=== PATIENT | male | born 1985 | race Caucasian/White ===

== ENCOUNTER 2020-11-19 19:27 | Emergency (ER) | payer OTHER, SELFPAY ==
--- NOTE | ~2020-11-19 | XR_ITS ---
EXAMINATION: LUMBOSACRAL SPINE AND COCCYX CLINICAL INFORMATION: Fracture COMPARISON: None TECHNIQUE: 2 views lumbosacral spine, 4 views sacrum and coccyx FINDINGS: There is straightening of the lumbosacral spine. There is disc space narrowing at L5-S1. There is partial lumbarization of what I am calling S1. No fractures are seen Sacrum and coccyx appear normal without evidence of fracture. The visualized pelvis appears unremarkable. XR/XR sacrum coccyx min 2V IMPRESSION: No evidence of fracture involving the lumbosacral spine, sacrum or coccyx.
--- NOTE | ~2020-11-19 | XR_ITS ---
EXAMINATION: LUMBOSACRAL SPINE AND COCCYX CLINICAL INFORMATION: Fracture COMPARISON: None TECHNIQUE: 2 views lumbosacral spine, 4 views sacrum and coccyx FINDINGS: There is straightening of the lumbosacral spine. There is disc space narrowing at L5-S1. There is partial lumbarization of what I am calling S1. No fractures are seen Sacrum and coccyx appear normal without evidence of fracture. The visualized pelvis appears unremarkable. XR/XR lumbar spine 2-3V IMPRESSION: No evidence of fracture involving the lumbosacral spine, sacrum or coccyx.
[2020-11-19 21:26] VITALS: BP 115/73; PULSE 84; RESP 20; TEMP 36.8; O2SAT 99; BMI 27.3
--- NOTE | 2020-11-19 22:16 | ED_ITS ---
HPI - Back Pain/Injury General Chief Complaint: Back Pain/Injury Stated Complaint: back inj Time Seen by Provider: 11/19/20 22:06 Source: patient Mode of arrival: ambulatory Limitations: no limitations History of Present Illness HPI Narrative: Patient presents to ED for back pain that began since early this afternoon. Patient states back pain soon after lifting, of manhole overhead which is about 120 lb. Patient states soon after he felt back pain. Patient states history of sciatica in the movement exacerbated his sciatica back pain. Patient denies hearing any cracking sound in back pain. Patient denies any urinary/bowel incontinence. Patient denies falling to the ground or hitting head. MD elicited complaint: back pain Related Data Previous Rx's Medication Instructions Recorded cyclobenzaprine 10 mg tablet 10 mg PO TID PRN #21 tab 11/20/20 lidocaine 4 % topical patch 1 patch TOPICAL DAILY PRN #10 ea 11/20/20 naproxen 500 mg tablet 500 mg PO BID PRN #20 tab 11/20/20 prednisone 20 mg tablet 60 mg PO DAILY 5 Days #15 tab 11/20/20 Allergies Allergy/AdvReac Type Severity Reaction Status Date / Time No Known Allergies Allergy Unverified 11/16/19 15:31 Review of Systems Review of Systems: Yes all other systems are reviewed and are negative Constitutional: Constitutional: Reports as per HPI and Reports no additional constitutional complaints Eyes: Eyes: Reports as per HPI and Reports no additional eye complaints ENT: Reports system reviewed and no additional complaints, except as documented and Reports as per HPI Cardiovascular: Cardiovascular: Reports as per HPI and Reports no additional cardiovascular complaints Respiratory: Respiratory: Reports as per HPI and Reports no additional respiratory complaints Gastrointestinal: Gastrointestinal: Reports as per HPI and Reports no additional gastrointestinal complaints Genitourinary: Genitourinary: Reports no additional male genitourinary complaints and Reports as per HPI Musculoskeletal: Musculoskeletal: Reports no additional musculoskeletal complaints, Reports as per HPI and Reports back pain Neurologic: Reports system reviewed and no additional complaints, except as documented and Reports as per HPI Psychiatric: Psychiatric: Reports no additional psychiatric complaints and Reports as per HPI Endocrine: Endocrine: Reports no additional endocrine complaints and Reports as per HPI [facility] Past Medical History Medical History (Updated 11/20/20 @ 00:42 by NERIS Francois) No known health problems Social History Social History Advance Directives: No Advance Directives Information Provided: No Physical Exam Vital Signs: Vital Signs: Last Vital Signs Temp 98.3 F 11/19/20 21:26 Pulse 84 11/19/20 21:26 Resp 20 11/19/20 21:26 BP 115/73 11/19/20 21:26 Pulse Ox 99 11/19/20 21:26 Body Mass Index 27.3 Const: General: cooperative, healthy appearing, comfortable, no acute distress, well developed, alert, awake and Physically active Orientation /consciousness: patient oriented x3 HENMT: Head: Yes normal to inspection and Yes No palpable skull fracture present Eyes: General: appearance normal, both eyes and all related structures Neck: Neck: Yes normal visual inspection, Yes full ROM, Yes no lymphadenopathy, Yes no meningeal signs, Yes trachea midline, Yes supple and No tender Chest: Chest palpation & inspection: normal inspection of the chest and normal palpation of entire chest wall Resp: Effort & Inspection: normal respiratory effort and able to speak in complete sentences Auscultation: clear to auscultation bilaterally Cardio: Jugular venous distension: no JVD Heart sounds: S1 normal heart sound present and S2 normal heart sound present GI: Inspection: Yes normal to inspection and No abdominal wall ecchymosis Palpation (GI): Soft to palpation, not firm, nontender, no guarding and not rigid : General: No CVA tenderness and Yes no CVA tenderness Back/Spine/Pelvis: Back: no CVA tenderness, No CVA tenderness and back tenderness (lumbar/sacrum) Skin: General skin exam: no rashes or lesions noted and elasticity normal Neuro: General: patient oriented x3, gait normal, no meningeal signs and CN's II-XI intact bilaterally Cranial nerves: Yes CN's II-XII intact bilaterally Extrem: General: Yes normal to inspection and Yes full ROM Psych: Appearance: grossly normal, well kempt and not disheveled Course Course Course Narrative: Patient of images and pain meds ordered. Reevaluation(s) Reevaluation #1: X-ray negative for fracture. Patient will be discharged with naproxen, lidocaine patch, and muscle relaxer. Time: 00:41 Discharge Plan Discharge Clinical Impression: Lumbar radiculopathy, Sciatica Patient Disposition: Home, Self-Care Instructions: Sciatica (ED), Low Back Strain (ED), Lumbar Radiculopathy (ED) Additional Instructions: Return to the ED immediately for any urinary/bowel incontinence, flank pain, dysuria, hematuria, fever, chills, testicular pain, nausea, vomiting, paralysis of extremities, or any other concerning symptoms. Please follow-up with PCP for MRI symptoms not improved. Prescriptions: New naproxen 500 mg tablet 500 mg PO BID PRN (Reason: pain) Qty: 20 RF: 0 cyclobenzaprine 10 mg tablet 10 mg PO TID PRN (Reason: muscle spasm) Qty: 21 RF: 0 lidocaine 4 % adhesive patch,medicated 1 patch topical DAILY PRN (Reason: pain) Qty: 10 RF: 0 prednisone 20 mg tablet 60 mg PO DAILY 5 Days Qty: 15 RF: 0 Stand Alone Forms: Work/School Release Discharge Date/Time: 11/20/20 01:12 Print Language: Swedish
[2020-11-19] MEDS: Cyclobenzaprine HCl 10 MG TABLET PO (22:57)
[2020-11-19] MEDS: Ibuprofen 800 MG TABLET PO (23:21)
[2020-11-20] MEDS: Lidocaine 4 % Patch ADH..PATCH 1 PATCH TRANSDERMA (00:58)
== END 2020-11-20 01:12 | disposition home or self-care (01) ==
PROVIDERS: Emergency Provider Emergency Medicine Emergency Medical Services; PCP Internal Medicine
DX: M54.16 Radiculopathy, lumbar region (principal); M54.40 Lumbago with sciatica, unspecified side; Z79.899 Other long term (current) drug therapy
CPT/HCPCS: 72100; 72220; 96372; 99284